=== PATIENT | male | born 1965 | race African-American/Black ===

== ENCOUNTER 2019-02-19 20:27 | Observation (INO) | payer SELFPAY ==
--- NOTE | 2019-02-19 20:57 | RAD ---
EXAM: Chest PA and lateral: HISTORY: Shortness of breath, chest pain COMPARISON: None FINDINGS: Heart size:Within normal limits. Lungs:Clear of acute process. No confluent pneumonia, overt edema, pleural effusion, or other acute process. Mild atherosclerosis of the aorta. IMPRESSION: No significant acute intrathoracic disease.
[2019-02-19 21:32] LABS: #Basophils 0.1 thou/uL (0.0-0.2); #Eosinphils 0.4 thou/uL (0.0-0.7); #Lymphocytes 2.6 thou/uL (1.20-3.40); #Monocytes 0.5 thou/uL (0.11-0.59); #Neutrophils 4.8 thou/uL (1.40-6.50); %Eosinophils 4.4 % (0.0-10.0); %Monocytes 6.4 % (0.0-10.0); %Neutrophils 57.3 % (42.0-75.0); Hemoglobin 14.4 g/dL (14.0-18.0); Mean Corpuscular HGB CONC 34.1 g/dL (32.0-36.0); Mean Corpuscular Hemoglobin 29.3 pg (27.0-31.0); Mean Corpuscular Volume 86.1 fL (78.0-98.0); Mean Platelet Volume 10.2 fL (7.4-10.4); Platelet Count 182 thou/uL (130-400); RBC Distribution Width 12.1 % (11.5-14.5); Red Blood Cell (RBC) Count 4.91 mill/uL (4.70-6.10); White Blood Cell (WBC) Count 8.4 thou/uL (4.8-10.8)
[2019-02-19 21:52] LABS: ALT (SGPT) 19 U/L (8-55); AST (SGOT) 19 U/L (5-34); Albumin 4.4 g/dL (3.5-5.0); Alkaline Phosphatase 106 U/L (40-150); Anion Gap 16 mmol/L (10-20); BUN (Urea Nitrogen) 19 mg/dL (8.4-25.7); Bilirubin, Total 0.3 mg/dL (0.2-1.2); CK (CPK) 483 U/L (30-200); Calc. Creatinine Clearance 0 mL/min (70-130); Carbon Dioxide 22 mmol/L (22-29); Chloride 96 mmol/L (98-107); Estimated GFR-MDRD 45; Globulin 3.1 g/dL (2.4-3.5); Glucose 526 mg/dL (70-105); Lipase 37 U/L (8-78); Potassium 3.9 mmol/L (3.5-5.1); Protein, Total 7.5 g/dL (6.0-8.3); Sodium 130 mmol/L (136-145)
[2019-02-20] MEDS ORDERED: Aspirin Chewable 81 MG TAB ONE (00:25)
[2019-02-20] MEDS ORDERED: Dextrose 5% in Water 1,000 ML IV PRN (01:12)
[2019-02-20] MEDS ORDERED: Dextrose 50% Abboject 50 ML SYRINGE SLOW IVP PRN (01:12)
[2019-02-20] MEDS ORDERED: HumaLOG 300 UNITS/3 ML VIAL SC PRN (01:12)
[2019-02-20 01:35] VITALS: BMI 38.7
[2019-02-20] MEDS ORDERED: Ondansetron ODT 4 MG TAB SL PRN (01:36)
[2019-02-20] MEDS ORDERED: Ondansetron PF 4 MG/2 ML Vial IVP PRN (01:36)
[2019-02-20] MEDS ORDERED: Acetaminophen 325 MG TAB PO PRN (01:36)
[2019-02-20 02:31] LABS: Troponin I Less than 0.010 ng/mL (< 0.028)
[2019-02-20] MEDS ORDERED: Sodium Chloride 0.9% 1,000 ML IV SCH (03:15)
[2019-02-20] MEDS ORDERED: Insulin Glargine 20 UNITS in Pre-Filled Syringe 1 EACH SC SCH (04:00)
--- NOTE | 2019-02-20 04:34 | PDOC.EVN ---
Event Note - Event Note Event Note: Dictation H&P: #[id number]
--- NOTE | 2019-02-20 05:48 | HP ---
CHIEF COMPLAINT: Chest pain. HISTORY OF PRESENT ILLNESS: Mr. Beasley is a 53-year-old man with a history of diabetes mellitus in the past, for which he used to take Glucophage, however, was taken off this several years ago. Otherwise, no known comorbidities. He presents today with complaints of intermittent chest pain for the last 2 days. It first started when he was walking with his on and states it was a pressure on the left side of his chest radiating to his left shoulder. The patient reports having the pain for over an hour. He states he took a nap after his walk and is unsure how long it was before it subsided. That day he continued to have intermittent chest pain. On Friday morning, he experienced severe chest pain which he rates 10/10 in severity. He states he was standing in the kitchen and had associated shortness of breath. He felt as if he could not take a deep breath and therefore struggling to breathe. Reports feeling nauseous, but denies any vomiting. No diaphoresis or dizziness. He states that for the last 2 to 3 weeks, he has been experiencing palpitations which have often woken him from his sleep at night. He feels as if his heart is pounding in his chest and at times gets deep. He has not had any syncopal or presyncopal episodes. States he has been eating and drinking as normal. Denies having any headaches or dizziness. No abdominal pain or cramping. He is moving his bowels as normal. He has noted significant urinary frequency in recent days. In the emergency department, he is noted to have an elevated glucose in the 500s, but no evidence of DKA. The patient states he underwent a catheterization more than 10 years ago which was normal. 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 REVIEW OF SYSTEMS: Denies any fevers, chills, or sweats. He is somewhat sedentary due to history of amputation to his left foot and just lack of motivation. He denies having any other complaints apart from those mentioned above in the HPI. PAST MEDICAL HISTORY: 1. Hyperglycemia, previously treated with Glucophage, but he was taken off it and states it was because he no longer needed it. 2. Hypertension. 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 SOCIAL HISTORY: Patient is fully independent. He previously smoked cigarettes, but quit several years ago. Denies any drug use. Denies any alcohol use. ALLERGIES: SULFA. CURRENT MEDICATIONS: None. PHYSICAL EXAMINATION: GENERAL: The patient appears obese, well developed and in no acute distress. VITAL SIGNS: Temperature 98.2, pulse 77, respirations 18, O2 saturation 97% on room air, and blood pressure 132/79. HEENT: Normocephalic and atraumatic. Pupils are equal, round, and reactive to light. Sclerae without icterus, but notable for injection. Oropharynx is clear. NECK: Supple. LUNGS: Clear to auscultation bilaterally without any wheezes, rales, or rhonchi. CARDIAC: Regular rate and rhythm. Mild discomfort with palpation of the left side of his chest. ABDOMEN: Obese, soft, nondistended, and nontender. Normoactive bowel sounds present. No guarding or rigidity. EXTREMITIES: No lower leg swelling or calf pain. Amputation of toes on the left foot. No evidence of erythema or swelling. No signs of infection. NEUROLOGIC: Alert and oriented x3. SKIN: Without rash or jaundice. LABORATORY DATA: White blood count 8.4, hemoglobin 14.4, hematocrit 42.3, and platelets 182. Sodium 130, potassium 3.9, BUN 19, creatinine 1.63, GFR 45, glucose 463, calcium 10, total bilirubin 0.3, AST 19, ALT 19, and alkaline phosphatase 106. CK 483, troponin 1 negative x2. Albumin 4.4. Lipase 37. IMAGING DATA: Chest x-ray, 02/19/2019. No significant acute intrathoracic disease. Mild atherosclerosis of the aorta. IMPRESSION AND PLAN: Mr. Beasley is a 53-year-old man who is being referred for management of the followin. Chest pain. The patient reports having pain at this present time, which he rates a 7/10 in severity on the left side of his chest. He does not seem to be in any significant distress and appears to be quite nonchalant when talking about it. We will provide pain medication. Patient was treated with aspirin in the emergency department. We will try tramadol. Awaiting third troponin. If negative, we will proceed with a stress test in the morning. Patient has not undergone cardiac investigations in quite sometime. Given the complaints of shortness of breath, would benefit from an echocardiogram as well. We will continue to monitor overnight. Given the fact that he also magnesium, we will monitor for any arrhythmias overnight, and add on TSH as well as magnesium to his labs. Of note, his CK is elevated at 483. 2. Hyperglycemia. Glucose is 463. No anion gap. No evidence of diabetic ketoacidosis. Patient received 5 units of insulin per sliding scale. We will give 20 units of Lantus x1. I have added him on hemoglobin A1c with morning labs. Patient likely to be discharged on oral medications for his diabetes. For day team to decide. 3. Acute kidney injury. Creatinine 1.63. Unclear if this is new or if he has chronic kidney disease. We will provide gentle hydration. 4. Hypertension. 5. Gastrointestinal prophylaxis. 6. Deep venous thrombosis prophylaxis with mechanical SCDs. 7. Code status. Full. His surrogate decision maker is his . Patient's case to be discussed with attending for further recommendations. Job ID: [id number]
[2019-02-20] MEDS: HumaLOG 300 UNITS/3 ML VIAL SC PRN ×2 (05:56→12:53)
[2019-02-20 06:23] LABS: Hemoglobin A1c 16.2 % (4.0-6.0)
[2019-02-20 06:48] LABS: Troponin I Less than 0.010 ng/mL (< 0.028)
[2019-02-20] MEDS ORDERED: Aspirin 81 mg Enteric Coated Tablet PO SCH (09:00)
[2019-02-20] MEDS ORDERED: Regadenoson 0.4 MG/5 ML SYRINGE ONE (12:47)
--- NOTE | 2019-02-20 14:40 | NM ---
NUCLEAR MEDICINE CARDIAC STRESS WITH EJECTION FRACTION AND WALL MOTION: HISTORY: Chest pain. COMPARISON: None. TECHNIQUE: The patient was administered 10.20 mCi of technetium-99m sestamibi for rest imaging and 31.70 mCi of technetium-99m sestamibi for stress imaging. Cardiac gating is performed. FINDINGS: Homogeneous distribution of the radiotracer in the left ventricle. No reversibility or fixed defect. TID is 0.78. End-diastolic volume is 123 mL. End-systolic volume is 54 mL. CARDIAC GATING: Normal wall motion and thickening. 56% ejection fraction. IMPRESSION: 1. No reversibility or fixed defect. 2. 56% ejection fraction. POS: [facility]
[2019-02-20] MEDS ORDERED: HumuLIN 70/30 (300 UNITS/3 ML VIAL) SC SCH ×2 (15:30→21:00)
[2019-02-20 16:13] VITALS: BP 131/60; TEMP 98.5
[2019-02-20 17:11] LABS: Anion Gap 14 mmol/L (10-20); BUN (Urea Nitrogen) 17 mg/dL (8.4-25.7); Calc. Creatinine Clearance 99 mL/min (70-130); Calcium 8.7 mg/dL (7.8-10.44); Carbon Dioxide 23 mmol/L (22-29); Chloride 99 mmol/L (98-107); Estimated GFR-MDRD 58; Glucose 491 mg/dL (70-105); Potassium 4.1 mmol/L (3.5-5.1); Sodium 132 mmol/L (136-145)
[2019-02-20] MEDS ORDERED: Atorvastatin Calcium 40 MG TAB PO SCH (21:00)
--- NOTE | 2019-02-21 02:36 | DIS ---
DATE OF ADMISSION: 02/20/2019 DATE OF DISCHARGE: 02/20/2019 DISCHARGE DIAGNOSES: 1. Chest pain. 2. Shortness of breath. 3. Diabetes. HOSPITAL COURSE: The patient is a 53-year-old male with a history of diabetes, has not been on medications for about a year, who presents to the hospital with complaints of shortness of breath. The patient had troponin x3 which were negative. His chest pain resolved. He had no more chest pain; however, he was found to have significant elevation of his blood sugars and also mild elevation of his creatinine. The patient did have a stress test which was negative for any cardiac etiology. He did have no reversible or fixed defect, 54% of EF. His hemoglobin A1c was 16. He was greatly advised to really be compliant with his medications and I did write him a script for insulin. D-dimer was negative. MEDICATIONS: His home medications will be as of the following. 1. Atorvastatin 40 mg at bedtime. 2. Novolin 70/30 of 12 units b.i.d. 3. Lisinopril 10 mg daily. PHYSICAL EXAMINATION: VITAL SIGNS: Temperature 98.5, pulse 62, respirations 14, 97% on room air, blood pressure 131/60. GENERAL: He is awake, alert, and oriented x3. Does not appear in distress. CV: S1 and S2 present. No murmurs, rubs, or gallops. ABDOMEN: Soft and nontender. Bowel sounds are present x2. PLAN AND RECOMMENDATIONS: Again, he will be discharged home. He will follow up with his primary care doctor. I did educate him significantly on diet, exercise, weight loss, and especially with his blood sugars monitoring. I also explained the details in terms of if he continues to live this lifestyle and not take his medications. The patient understands. I did provide him [facility] phone number and he stated that he will follow up with this physician or he will go to [facility]. Job ID: [id number]
[2019-02-21] MEDS ORDERED: Lisinopril 10 MG TAB PO SCH (09:00)
== END 2019-02-20 18:03 | disposition home or self-care (01) ==
LOC: ERS 20:27 → 2SW 02-20 01:15
PROVIDERS: ADMIT Internal Medicine; ATTEND Internal Medicine
DX: R07.9 Chest pain, unspecified (principal); R06.02 Shortness of breath; E11.65 Type 2 diabetes mellitus with hyperglycemia; I10 Essential (primary) hypertension; E66.9 Obesity, unspecified; N17.9 Acute kidney failure, unspecified; R00.2 Palpitations; Z87.891 Personal history of nicotine dependence; Z88.2 Allergy status to sulfonamides; Z68.38 Body mass index [BMI] 38.0-38.9, adult
CPT/HCPCS: 36415; 36416; 71045; 78452; 80048; 80053; 82550; 83036; 83690; 83880; 84443; 84484; 85025; 85379; 93005; 93017; 93306; 96360; 96361; A9500; G0378; J1815; J2785